=== PATIENT | female | born 1970 | race Caucasian/White ===

== ENCOUNTER 2019-11-03 13:26 | Emergency (ER) | payer BC ==
--- OUTSIDE RECORDS SUMMARY | 2019-11-03 13:33 | XMS REPORT ---
:1970 Author Organization [facility] Address [address] [place] [address] Care Team Providers Name Role Phone Qamar Connell Unavailable Unavailable PROBLEMS Type Condition ICD9-CM [id number] Onset Condition SNOMED Code Code Code Dates Status Problem MALAISE AND FATIGUE 780.79 Active 246290877 NEC Problem Osteoarthrosis not 715.96 Active 371000481 designated as generalized or localized NOS, lower leg Problem Lymphadenopathy 785.6 Active 36770753 Problem Cervicalgia M54.2 Active 882297739 Problem Grieving F43.20 Active 64874603 Problem Other chronic pain G89.29 Active 21712137 Problem Anxiety F41.9 Active 79191089 Problem Migraine with aura G43.101 Active 7421910 and with status migrainosus, not intractable Problem Seasonal allergic J30.2 Active 068628783 rhinitis, unspecified trigger Problem Smokes cigarettes F17.210 Active 47889564 Problem Encounter for Z71.6 Active 792409603 tobacco cessation counseling Problem Migraine without G43.009 Active 637567217 aura and responsive to treatment Problem Hx of non anemic Z86.39 Active 766529980 vitamin B12 deficiency Problem Low folic acid E53.8 Active 682379361 ALLERGIES No Information ENCOUNTERS Encounter Location Date Diagnosis [facility] [address], [place] [address] Apr, Trigger ring [place] [address] left hand M65.342 [facility] [address] [facility], [place] [address] [place], Swelling [place] [address] hand M25.442 ; Skin lesions L98.9 ; Encounter for screening mammogram for breast cancer Z12.31 ; Cigarette nicotine dependence without complication F17.210 ; Encounter for smoking cessation counseling Z71.6 and Seasonal allergic rhinitis, unspecified trigger J30.2 [place] [facility] [address] [place], [place] [address] [place] [facility] [address] [place], [place] [address] [place] [facility] [address] [place] [address] [place] [facility] [address] [place] [address] [place] [address] [place], [place] [address] Feb, [facility] [place] [address] [place] [facility] [address] [place], [place] [address] [place] [address] [place] [address] [place] [facility] [address] [place] [address] [place] [facility] [address] [place] [address] [place] [address] [place], [place] [address] [place] [address] [place], [place] [address] [place] [address] [place] [address] [place] [facility] [address] [place] [address] Jun, [facility] [place] [address] [place] [facility] [address] [place] [address] [place] [facility] [address] [place], [place] [address] [place] [address] [place], May, Grieving F43.20 [place] [address] Anxiety F41.9 [place] [address] [place], Apr, [place] E53.8 [place] [address] Grieving F43.20 [facility] [address] Apr, [place] [address] [place] [facility] [address] [place], [place] [address] [place] [facility] [address] [place], [place] [address] [facility] [address] [place], Apr, [place] [address] contraception Z30.42 ; Migraine without aura and responsive to treatment G43.009 and Hx of non anemic vitamin B12 deficiency Z86.[address] Apr, Seasonal [place] [address] Apr, [place] [address] [facility] [address] [place], [place] [address] [facility] [address] [place], [place] [address] January, [place] [address] January, [place] [address] [facility] [address] [place] [address] [facility] [address] [place], [place] [address] [facility] [address] [place], [place] [address] [place] [address] [place], Sep, [place] [address] status Z30.40 [place] [facility] [address] [place], [place] [address] [facility] [address] [place], Sep, [place] [address] recurrence not specified J01.00 ; Depo-Provera contraceptive status Z30.40 and Bradycardia R00.1 [place] [facility] [address] [place], [place] [address] Jul, [place] [address] [facility] [address] [place], Jul, [place] [address] Z12.4 [facility] [address] [place] [address] Jul, [place] [address] [facility] [address] [place], [place] [address] [place] [address] [place], Jun, [place] [address] [address] [place], May, [place] [address] for depo-Provera Z30.[address] [place] [address] [place], May, Cervical[place] M54.2 [place] [address] [place], May, [place]ervical[place] M54.2 [place] [address] [place], Apr, [place] [address] canal of cervical region M99.31 ; Arthritis involving multiple sites M12.9 and Cervicalgia M54.2 [place] [address] [place], [place] [address] [place], [place] [address] [place], Feb, [place] [address] contraception Z30.42 and Pain in right knee M25.[address] [place], [place] [address] [place], [place] [address] [place], [place] [address] [place], [place], [place] [address] Depo-Provera contraception monitoring/administration Z30.42 and Breast screening Z12.[address] [place], Jul, [place] [address] [place], Jul, UTI ([place] [address] infection) N39.[address] [place], Jul, Dep[place] Z30[place]40 [place] [address] ; Urinary urgency R39.15 and Grieving F43.[address] [place], [place] [address] [place], [place] [address] [place], Apr, DJ[place] ( [place] [address] disease), cervical M50.30 and Depot contraception Z30.40 [facility] [address] [place], Seasonal allergic rh[place] 477.9 [address] [place] [address] [place], [place] [address] [place], Feb, DJD ( [place] [address] disease), cervical M50.[address] [place] [address] [place], [place] [address] [place] [address] [place], Feb, Cervicalgia M54.2 [place] [address] [place] [address] [place], [place] [address] [place], January, Screening, lipid Z13.220 ; [place] [address] Depot contraception Z30.40 ; Cervicalgia M54.2 and Not up to date with tetanus toxoid immunization Z28.[address] [place] [address] [place], Nov, Cervicalgia M54.2 ; [place] [address] Migraine with aura and with status migrainosus, not intractable G43.101 and Smokes cigarettes F17.[address] [place] [address] [place], [place] [address] [place], Jul, [place] [address] of injectable contraceptive Z30.42 ; Dysuria R30.0 and Smokes cigarettes F17.[address] [place] [address] [place], Apr, Fatigue 780.79 [place] [address] 786.[address] [place] [address] [place], [place], [place] [address] V25.[address] [place] [address] [place], [place] [address] [place] [address] [place], Feb, [place] [address] [address] [place] [address] [place], [place] [address] [place], January, Tobacco abuse 305.1 ; [place] [address] Epigastric pain 789.06 and Black tarry stools 578.[address] [place] [address] [place], Dec, [place] [address] V25.9 and Tobacco abuse 305.1 [facility] [address] Nov, [place] [address] [facility] [address] [facility] [place] [address] [facility] [address] [place] [address] [place], [place] [address] [place], [place] [address] [facility] [address] [place] [address] [place], [place] [address] Feb, [place] [address] [place] [address] [address] [facility] [place], [place] [address] [facility] [address] [place] [address] [place] [address] [place], [place] [address] [place], [place] [address] [facility] [address] [place] [address] [place], [place] [address] [facility] [address] [place] [address] [place], January, [place] [address] 477.9 ; Tobacco use disorder 305.1 ; MALAISE AND FATIGUE NEC 780.79 ; SCRN MAL CLEM BREAST NOS V76.10 ; Routine general medical examination at health care facility V70.0 ; Screening for malignant neoplasm of the cervix V76.2 and Acute lymphadenitis [address] Dec, [place] [address] [facility] [address] [facility], [place] [address] [place], [place] [address] IMMUNIZATIONS No Known Immunizations SOCIAL HISTORY Never Assessed REASON FOR REFERRAL FUNCTIONAL STATUS PLAN OF CARE VITAL SIGNS MEDICATIONS Unknown Medications PROCEDURES No Known procedures RESULTS No Results REASON FOR VISIT Insurance Providers [facility] Patient Patient Patient Patient Patient Subscriber Subscriber Subscriber Group Insurance Plan Plan Plan Plan ID Relationship Address Phone Name Date of ID Name Date of No Type Insurance Insurance Insurance Coverage to Subscriber Address Phone Name Dates Blue [phone] Blue self Cinnamon [id number] Choice Opt [id number] Choice Opt [place] [id number] [place] Claims [id number] [place] [address] Medicaid [id number] Medicaid self Cinnamon [id number] [place] 56 Wrap [place] [address] Blue [phone] Blue self Cinnamon [id number] Choice Opt [id number] Choice Opt [place] 1 [place] [address] FHP [place] [phone] FHP [place] self Cinnamon [id number] Plan Med [id number] Plan Med Shira 4 [facility] [address] FQHC Slide [phone] FQHC Slide self Cinnamon [id number] [facility] [place] [address] [place] [address] 60 Percent FQHC Slide [phone] FQHC Slide self Cinnamon [id number] [facility] [place] [address] [place] [address] 60 Percent FHP [place] [phone] FHP [place] self Cinnamon [id number] Plan [id number] 83 Plan Shira Dental Claims Dental HPlex Dept HPlex [facility] [address] FQHC Slide [phone] FQHC Slide self Cinnamon [id number] [facility] [place] [address] [place] [address] 30 Percent MEDICAL (GENERAL) HISTORY Type Description Date Medical History gastric ulcers Medical History PEPTIC ULCER NOS Surgical History meniscus Surgical History 4th finger surgery Surgical History LEEP Surgical History Surgical History R ovary removed Hospitalization History Child - 2006
[2019-11-03 14:08] VITALS: BP 126/66
--- NOTE | 2019-11-03 14:44 | UC ---
Lower Extremity/Ankle HPI - HPI Summary HPI Summary: 49-year-old female presents with complaints of left foot and ankle pain. States 6 days ago she missed a step causing an inversion injury to her left foot and ankle. Complains of pain over the proximal fifth metatarsal and left lateral malleolus. States pain worsens with weightbearing. Improves with use of pain medication. She has been able to walk and bear weight since the injury. Denies any numbness or tingling. - History of Current Complaint Chief Complaint: UCLowerExtremity Stated Complaint: L FOOT INJURY Time Seen by Provider: 11/03/19 14:10 Hx Obtained From: Patient Pain Intensity: 5 - Allergies/Home Medications Allergies/Adverse Reactions: Allergies Allergy/AdvReac Type Severity Reaction Status Date / Time NSAIDS (Non-Steroidal Allergy Hives Verified 11/03/19 13:56 Anti-Inflamma Home Medications: Home Medications Ondansetron ODT TAB* [Zofran 4 MG Odt TAB*] 1 tab PO Q6HR PRN 11/03/19 [History Confirmed 11/03/19] Oxycodone HCl [Oxycodone HCl ER 15 mg] 1 tab PO BID 11/03/19 [History Confirmed 11/03/19] SUMAtriptan TAB* [Imitrex TAB*] 1 tab PO DAILY WITH MEAL PRN 11/03/19 [History Confirmed 11/03/19] PMH/Surg Hx/FS Hx/Imm Hx Neurological History: Migraine - Surgical History Surgical History: None - Family History Known Family History: Positive: Non-Contributory - Social History Occupation: Unemployed Lives: With Family Alcohol Use: None Substance Use Type: None Smoking Status (MU): Light Every Day Tobacco Smoker Review of Systems All Other Systems Reviewed And Are Negative: Yes Constitutional: Positive: Negative Skin: Negative: Bruising Respiratory: Positive: Negative Cardiovascular: Positive: Negative Gastrointestinal: Positive: Negative Genitourinary: Positive: Negative Motor: Negative: Weakness Neurovascular: Negative: Decreased Sensation Musculoskeletal: Positive: Other: - See HPI Neurological/Mental Status: Positive: Negative Is Patient Immunocompromised?: No Physical Exam - Summary Physical Exam Summary: GENERAL APPEARANCE: Well developed, well nourished, alert and cooperative, and appears to be in no acute distress. CARDIAC: Normal S1 and S2. No S3, S4 or murmurs. Rhythm is regular. There is no peripheral edema, cyanosis or pallor. Extremities are warm and well perfused. Capillary refill is less than 2 seconds. Peripheral pulses intact. LUNGS: Clear to auscultation without rales, rhonchi, wheezing or diminished breath sounds. ABDOMEN: Positive bowel sounds. Soft, nondistended, nontender. No guarding or rebound. No masses or hepatosplenomegally. MUSKULOSKELETAL: Normal muscular development. Normal gait. EXTREMITIES: Tenderness over the proximal 5th metarsal of the left foot without gross deformity, edema, or ecchymosis. Tenderness over the lateral left malleolus without gross deformity, edema, or ecchymosis. Full ROM to the ankle. Circulation and sensation intact. SKIN: Skin normal color, texture and turgor with no lesions or eruptions. Triage Information Reviewed: Yes Vital Signs: Initial Vital Signs Temp 98.6 F 11/03/19 14:01 Pulse 50 11/03/19 14:01 Resp 18 11/03/19 14:01 BP 126/66 11/03/19 14:01 Pulse Ox 100 11/03/19 14:01 Vital Signs Reviewed: Yes Diagnostics - Radiology No standard instances Radiology Interpretation Completed By: Radiologist Summary of Radiographic Findings: Order Information: ANKLE LEFT 3+VWS. Indication: Left ankle injury. 3 views of the left ankle demonstrates no fracture or dislocation. No other bone or joint abnormality is identified. IMPRESSION: No fracture of the left ankle is noted. Order Information: FOOT LEFT 3+ VWS. Indication: Left foot pain. 3 views of the left foot demonstrates no fracture or dislocation. Degenerative changes of the first metatarsal phalangeal joint is noted. No fracture is identified. IMPRESSION: No fracture of the left foot is noted. Lower Extremity Course/Dx - Course Course Of Treatment: 49-year-old female presents with complaints of left foot and ankle pain. States 6 days ago she missed a step causing an inversion injury to her left foot and ankle. Complains of pain over the proximal fifth metatarsal and left lateral malleolus. States pain worsens with weightbearing. Improves with use of pain medication. She has been able to walk and bear weight since the injury. Denies any numbness or tingling. Afebrile. Vital signs stable. Patient had tenderness over the proximal 5th metarsal of the left foot without gross deformity, edema, or ecchymosis as well has tenderness over the lateral left malleolus without gross deformity, edema, or ecchymosis. Full ROM to the ankle. Circulation and sensation intact. X-rays of the left ankle and foot showed no acute fracture or dislocation. Results were reviewed with the patient. Recommending conservative treatment for a left ankle/foot sprain including [id number] analgesics and RICE. She was placed in a CAM boot by the RN and instructed to use until pain free. She is to follow-up with orthopedic surgery in 7 days if symptoms are not improving. Anticipatory guidance and warning symptoms were reviewed with the patient. Verbalizes understanding and agrees with plan of care. - Differential Dx/Diagnosis Differential Diagnosis/HQI/PQRI: Contusion, Dislocation, Fracture (Closed), Sprain Provider Diagnosis: Left ankle sprain, Sprain of left foot Discharge ED - Sign-Out/Discharge Documenting (check all that apply): Patient Departure All imaging exams completed and their final reports reviewed: Yes - Discharge Plan Condition: Stable Disposition: HOME Patient Education Materials: Foot Sprain (ED) Referrals: No Primary Care Phys,NOPCP [Primary Care Provider] - Additional Instructions: The x-rays performed in the clinic today showed no evidence of a fracture. I suspect your have a sprain of the foot/ankle. Rest the foot/ankle as much as possible. You may continue to walk and bear weight as tolerated. Wear the CAM boot applied in the clinic for support until you are pain free. You may remove to sleep and shower but should wear at all other times. Apply ice to the affected area for 15-20 minutes at least 4 times a day to help with the pain and swelling. Elevate the leg to help reduce swelling. You may use an MARIAH wrap or compression sleeve to help manage swelling. Take acetaminophen (Tylenol) or ibuprofen (Advil, Motrin) according to directions as needed for pain. Follow up with orthopedic surgery in 7 days if symptoms do not improve. Seek immediate medical attention if you have severe pain not managed with pain medication, you are unable to walk or bear any weight, develop numbness or tingling in the foot or toes, or have any worsening of symptoms. - Billing Disposition and Condition Condition: STABLE Disposition: Home
== END 2019-11-03 15:31 | disposition home or self-care (01) ==
LOC: UCEAST 13:26
DX: S93.402A Sprain of unspecified ligament of left ankle, initial encounter (principal); S93.602A Unspecified sprain of left foot, initial encounter; G43.909 Migraine, unspecified, not intractable, without status migrainosus; F17.290 Nicotine dependence, other tobacco product, uncomplicated; Z88.6 Allergy status to analgesic agent; Z79.899 Other long term (current) drug therapy; X50.0XXA Overexertion from strenuous movement or load, initial encounter; Y92.9 Unspecified place or not applicable
CPT/HCPCS: 99212; G0463